=== PATIENT | male | born 1990 | race Caucasian/White ===

== ENCOUNTER 2017-02-05 12:19 | Emergency (ER) | payer SELFPAY ==
[~2017-02-05] VITALS: Ht 175.3 cm; Wt 70.3 kg
--- OUTSIDE RECORDS SUMMARY | 2017-02-05 12:28 | XMS REPORT | Continuity of Care Document ---
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 Role Phone [employer] Unavailable Unavailable Problems Problem Status Onset Date Classification Date Reported Comments Source Tobacco user (finding) Active Problem 10/26/2013 1Added by Discern Expert based on Social History [facility] Medications Allergies, Adverse Reactions, Alerts Substance Category Reaction Severity Reaction type Status Date Reported Comments Source NKA drug allergy Allergy Active [facility] Immunizations Results Vital Signs Encounters Location Location Details Encounter Type Encounter Number Reason For Visit Attending Provider ADM Date DC Date Status Source [facility] [id number] Clinic ( Outpatient) [id number] [facility] 10/05/2013 Active [employer] [facility] [id number] Clinic ( Outpatient) [id number] [facility] 10/22/2013 Active [facility] Procedures Plan of Care Social History Assessment and Plan Family History Value Date Source Advance Directives Order Name Results Value Date Source
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
[2017-02-05] MEDS ORDERED: TETANUS,DIPTH,PERTUSS P/F (BOOSTRIX) 0.5 ML VIAL IM ONE (12:45)
[2017-02-05] MEDS ORDERED: HYDR-757 PO (12:46)
[2017-02-05 12:52] VITALS: BP 151/72
== END 2017-02-05 12:52 | disposition home or self-care (01) ==
LOC: ER 12:23
DX: S42.022A Displaced fracture of shaft of left clavicle, initial encounter for closed fracture (principal); Z23 Encounter for immunization; V18.0XXA Pedal cycle driver injured in noncollision transport accident in nontraffic accident, initial encounter; Y93.55 Activity, bike riding; Y99.8 Other external cause status
CPT/HCPCS: 73030; 90471; 90715; 99283